=== PATIENT | female | born 1990 | race Two or more races ===

== ENCOUNTER 2023-09-17 12:28 | Emergency (ER) | payer OTHER ==
[~2023-09-17] VITALS: Ht 162.6 cm; Wt 77.3 kg
[2023-09-17 12:43] VITALS: BP 126/71; PULSE 61; RESP 16; TEMP 97.9
[2023-09-17 13:10] LABS: BASOPHILS % (AUTO) 0.3 % (0.0-2.0); EOSINOPHILS % (AUTO) 2.4 % (1.0-6.0); HEMATOCRIT 39.8 % (36-46); HEMOGLOBIN 13.6 g/dL (12.0-16.0); LYMPHOCYTES # (AUTO) 1.4 K/uL (1.0-4.8); LYMPHOCYTES % (AUTO) 23.7 % (22.0-44.0); MEAN CORPUSCULAR HGB CONC 34.3 G/dL (31.0-37.0); MEAN CORPUSCULAR VOLUME 88 fL (80-100); MONOCYTES # (AUTO) 0.3 K/uL (0.1-1.0); MONOCYTES % (AUTO) 4.7 % (2.0-9.0); NEUTROPHILS # (AUTO) 3.9 K/uL (1.8-7.7); NEUTROPHILS % (AUTO) 68.9 % (40.0-70.0); PLATELET COUNT (AUTO) 351 K/uL (150-450); RED BLOOD CELL COUNT(AUTO) 4.55 MIL/uL (4.00-5.20); RED CELL DISTRIBUTION WIDTH 13.4 % (11.5-14.5); WHITE BLOOD COUNT (AUTO) 5.7 K/uL (4.5-11.0)
[2023-09-17 13:21] LABS: ANION GAP 9 mmol/L (8-16); CALCIUM, TOTAL 9.4 mg/dL (8.8-10.5); CARBON DIOXIDE 28 mmol/L (22-29); CHLORIDE 105 mmol/L (98-107); CREATININE 0.67 mg/dL (0.60-1.30); GLOMERULAR FILTR. RATE CALC > 60 mL/min (>60); GLUCOSE,RANDOM 94 mg/dL (70-110); POTASSIUM 3.9 mmol/L (3.5-5.1); SODIUM SERUM 142 mmol/L (136-145); UREA NITROGEN, BLOOD 9 mg/dL (7-18)
[2023-09-17 13:27] LABS: ALANINE AMINOTRANSFERASE 27 U/L (12-78); ALBUMIN 4.1 g/dL (3.4-5.0); ALKALINE PHOSPHATASE 86 U/L (46-116); ASPARTATE AMINOTRANSFERASE 14 U/L (15-37); BILIRUBIN,TOTAL 0.4 mg/dL (0.1-1.0); TOTAL PROTEIN, SERUM 7.6 g/dL (6.4-8.2); TROPONIN I-HIGH SENSITIVITY 19 ng/L (<51)
[2023-09-17] MEDS ORDERED: IBUP-1554 PO (14:43)
[2023-09-17] MEDS ORDERED: IBUPROFEN 600 MG TABLET PO ONE (14:45)
== END 2023-09-17 15:03 | disposition home or self-care (01) ==
LOC: EMS 12:29
DX: S29.011A Strain of muscle and tendon of front wall of thorax, initial encounter (principal); X50.3XXA Overexertion from repetitive movements, initial encounter; Y93.89 Activity, other specified; Y92.89 Other specified places as the place of occurrence of the external cause; Y99.8 Other external cause status
CPT/HCPCS: 71045; 80053; 84484; 85025; 93005; 99285; 36415-L1; 36415-TC

== ENCOUNTER 2024-06-27 11:16 | Emergency (ER) | payer OTHER ==
[~2024-06-27] VITALS: Ht 154.9 cm; Wt 80.0 kg
[~2024-06-27 11:16] MED LIST: IBUP-1554 PO
[2024-06-27] MEDS ORDERED: KETO10TA2 PO (11:25)
[2024-06-27 11:26] VITALS: TEMP 97.9
[2024-06-27] MEDS: KETOROLAC TROMETHAMINE 30 MG/ML VIAL IM ONE (14:33)
[2024-06-27] MEDS: METHOCARBAMOL 500 MG TABLET PO ONE (14:34)
[2024-06-27] MEDS: LIDOCAINE 5% TRANSDERMAL PATCH TD ONE (14:34)
[2024-06-27] MEDS: ACETAMINOPHEN 325 MG TABLET PO ONE (14:34)
[2024-06-27] MEDS ORDERED: METH-812 PO (16:56)
[2024-06-27] MEDS: DEXAMETHASONE 4 MG TABLET PO ONE (17:06)
[2024-06-27 17:13] VITALS: BP 109/52; PULSE 52; RESP 17; O2SAT 99
[2024-06-27] MEDS: HYDROCODONE/ACETAMINOPHEN 5-325 MG TABLET PO ONE (18:17)
== END 2024-06-27 19:59 | disposition home or self-care (01) ==
LOC: EMS 11:16
DX: S39.012A Strain of muscle, fascia and tendon of lower back, initial encounter (principal); X50.9XXA Other and unspecified overexertion or strenuous movements or postures, initial encounter; Y93.89 Activity, other specified; Y92.89 Other specified places as the place of occurrence of the external cause; Y99.8 Other external cause status
CPT/HCPCS: 99284; 96372; J8540; J1885